=== PATIENT | female | born 1990 | race Caucasian/White ===

== ENCOUNTER 2018-06-22 12:21 | Outpatient (CLI) | payer OTHER ==
--- NOTE | 2018-06-22 15:55 | MRI ---
RIGHT SHOULDER MRI WITHOUT IV CONTRAST: HISTORY: Right rotator cuff tendinitis, right shoulder pain since December. FINDINGS: Minimal downsloping of the anterior acromion. Mild fat stranding in the subacromial bursa. No evide nce for rotator cuff tear. Subscapularis and biceps tendons are intact. Rotator cuff muscles are wi thin normal limits of signal and volume. No significant abnormal marrow signal or acute osteochondra l defect. IMPRESSION: Mild downsloping of the anterior acromion. No evidence for significant acute internal derangement. POS: TPC
--- NOTE | 2018-06-22 16:09 | MRI ---
MRI LEFT WRIST WITHOUT IV CONTRAST: HISTORY: Complex tear of triangular fibrocartilage complex. Left wrist pain for weeks. FINDINGS: There is some minimal fluid in the extensor pollicis brevis tendon sheath, as well as the extensor ca rpi radialis brevis tendon sheath. Minimal increased signal in the region of the extensor carpi ulna ris tendon, with minimal thickening and increased signal at the level of the distal ulna, with some v shabana mild tendon sheath fluid. There is a questionable tiny, linear area of increased signal in the t riangular fibrocartilage complex, possibly a very tiny hairline tear, with very minute fluid in the d istal radial ulnar joint. The scapholunate ligament region appears unremarkable. No evidence for ab normal marrow signal. IMPRESSION: 1. Possible tiny, slit-like tear in the triangular fibrocartilage complex, with minute fluid in the distal radial ulnar joint, evidence for some tenosynovitis, involving the extensor pollicis brevis te ndon sheath, as well as the extensor carpi radialis brevis tendon sheath. 2. Minimal tendinopathy and tendon sheath fluid in the extensor carpi ulnaris. 3. No evidence for other significant acute process. POS: TPC
== END 2018-06-22 12:22 | disposition home or self-care (01) ==
LOC: SCSMRI 12:21
PROVIDERS: ATTEND Orthopaedic Surgery Hand Surgery
DX: S63.592A Other specified sprain of left wrist, initial encounter (principal); M25.511 Pain in right shoulder; M75.81 Other shoulder lesions, right shoulder; M65.88 Other synovitis and tenosynovitis, other site

== ENCOUNTER 2018-11-22 09:11 | Outpatient (CLI) | payer OTHER | END 2018-11-22 09:12 | disposition home or self-care (01) | LOC: CTENTCT 09:11 | PROVIDERS: ATTEND Otolaryngology Plastic Surgery within the Head & Neck | DX: J32.9 Chronic sinusitis, unspecified (principal) | CPT/HCPCS: 70486 ==

== ENCOUNTER 2019-03-23 09:57 | Day surgery (SDC) | payer OTHER ==
[2019-03-22 11:13] VITALS: BMI 25.1
[2019-03-23] MEDS ORDERED: Ketorolac Tromethamine 30 MG/ML VIAL ONE (10:17)
[2019-03-23] MEDS ORDERED: Lidocaine 1% PF 5 ML VIAL ONE (10:17)
[2019-03-23] MEDS ORDERED: Ondansetron PF 4 MG/2 ML Vial ONE (10:17)
[2019-03-23] MEDS ORDERED: ePHEDrine/0.9% NaCl/PF SYRINGE 50 mg/10 ml ONE (10:17)
[2019-03-23] MEDS ORDERED: Rocuronium Bromide 10 MG/ML (10ML VIAL) ONE (10:17)
[2019-03-23] MEDS ORDERED: Dexamethasone 20 MG/5 ML VIAL ONE (10:17)
[2019-03-23] MEDS ORDERED: PROPOFOL 200 MG/20 ML VIAL ONE (10:17)
[2019-03-23] MEDS ORDERED: Oxymetazoline HCl 0.05% ( 15 ML ) ONE ×2 (10:21→11:15)
[2019-03-23] MEDS ORDERED: Fentanyl 250 MCG/5 ML VIAL ONE (10:26)
[2019-03-23] MEDS ORDERED: Lidocaine 1% w/Epinephrine 1:100K 20 ML VIAL ONE (11:15)
[2019-03-23] MEDS ORDERED: Bacitracin Zinc Ointment 30 gm TUBE ONE (12:00)
[2019-03-23] MEDS ORDERED: Fentanyl 100 MCG/2 ML VIAL ONE ×2 (12:33→13:11)
[2019-03-23] MEDS ORDERED: Promethazine HCl 25 MG/ML VIAL ONE (12:34)
[2019-03-23] MEDS ORDERED: Hydrocodone-Acetamin 15 ML UDCUP ONE (15:23)
--- NOTE | 2019-03-24 09:26 | OP ---
DATE OF PROCEDURE: 03/23/2019 PREOPERATIVE DIAGNOSES: 1. Chronic rhinosinusitis. 2. Nasal septal deviation. 3. Bilateral inferior turbinate hypertrophy. POSTOPERATIVE DIAGNOSES: 1. Chronic rhinosinusitis. 2. Nasal septal deviation. 3. Bilateral inferior turbinate hypertrophy. PROCEDURES PERFORMED: 1. Bilateral endoscopic sinus surgery, total ethmoidectomies. 2. Bilateral endoscopic sinus surgery, maxillary antrostomies. 3. Bilateral endoscopic sinus surgery, frontal sinusotomy. 4. Nasal septoplasty. 5. Bilateral inferior turbinate submucosal resection. ESTIMATED BLOOD LOSS: 20 mL. COMPLICATIONS: None. ANESTHESIA: GETA. DESCRIPTION OF PROCEDURE: The patient was taken to the operating room and GETA was obtained by the anesthesia staff. Afrin pledgets were then placed into the nasal cavity bilaterally. The patient was placed into the beach chair position and was prepped and draped for standard nasal surgical procedures. Following this, the Afrin pledgets were removed and 1% lidocaine with 1:100,000 epinephrine was injected via a 27 gauge needle into the nasal septum, the inferior turbinate and the middle turbinate bilaterally. Following this, a [place] incision was made on the left nasal septum and mucoperichondrial flaps were elevated. A strong 2 cm caudal and dorsal cartilage strut was left intact as the deviated portions of the nasal cartilage and bone was removed. A 4-0 gut stitch was used to reapproximate the nasal mucoperichondrial flaps as well as close the Jer incision. Following this, the submucosal microdebrider was used to puncture and submucosally resect the anterior-inferior portions of the hypertrophic inferior turbinates. The inferior turbinates were laterally outfractured with a [place] elevator. Following this, 1% lidocaine with 1:100,000 epinephrine were injected into the middle turbinates and lateral nasal wall bilaterally. Following this, the 0-degree endoscope was used to visualize the middle turbinate and the middle turbinate was medially fractured using a [place] elevator. Following this, the uncinate process was identified and was examined. The uncinate process was noted to be inflamed and laterally displaced bilaterally. Following this, a ball-ended probe was used to anteriorly fracture the uncinate process bilaterally. Following this, the 0-degree microdebrider and the up-biting [place] forceps were used to remove the uncinate process bilaterally. Following this, the natural maxillary sinus ostia was identified with the 0-degree endoscope and the ball-ended probe. The natural maxillary ostia were then widened using a 40-degree microdebrider and the straight [place] forceps bilaterally. Following this, the ethmoidal bulla was identified bilaterally. A 0-degree microdebrider was used to puncture the ethmoidal bulla on its medial and inferior aspect bilaterally. Following this, the 0-degree microdebrider and the up-biting [place] forceps were used to remove the ethmoidal bulla. Following this, the grand lamella was identified posterior to this area and was punctured using the 0-degree microdebrider bilaterally. Following this, the ethmoidal cells were opened from the posterior to the anterior using the 0-degree microdebrider, the 40-degree microdebrider and the up-biting [place] forceps bilaterally. Following this, the 45-degree endoscope and the 40-degree microdebrider blade were used to further remove the anterior ethmoidal cells to the level of the frontal sinus recess bilaterally. Following this, a 45-degree endoscope was then used to visualize frontal sinus recess and frontal sinus ostia, which was then widened using a 40-degree microdebrider blade and up-biting [place] forceps. Following this, it was also noted on the right maxillary sinus, there was a large medial wall defect from the severity of her nasal septal deviation. This large accessory ostia was not connected to the natural maxillary sinus ostia and a ball-ended probe was used to connect these tubes and the 40-degree microdebrider blade was used to widened up. The nasal cavity was irrigated. NasoPore packing was placed within the middle meatus and PROPEL nasal stents were placed within the new maxillary sinus ostia bilaterally. The patient tolerated the procedure well. Job ID: [id number]
== END 2019-03-23 16:22 | disposition home or self-care (01) ==
LOC: SDC 09:57 → EEVIPCON 09:57 → SDC 16:22
PROVIDERS: ATTEND Otolaryngology Plastic Surgery within the Head & Neck
DX: J32.9 Chronic sinusitis, unspecified (principal); J34.2 Deviated nasal septum; J34.3 Hypertrophy of nasal turbinates; M06.9 Rheumatoid arthritis, unspecified; J30.1 Allergic rhinitis due to pollen; J30.81 Allergic rhinitis due to animal (cat) (dog) hair and dander; Z79.899 Other long term (current) drug therapy; Z88.0 Allergy status to penicillin; Z91.011 Allergy to milk products; Z91.018 Allergy to other foods
CPT/HCPCS: 36415; 85014; J0131; J1100; J1885; J2001; J2405; J2550; J2704; J3010

== ENCOUNTER 2020-02-28 08:38 | Outpatient (CLI) | payer OTHER ==
--- NOTE | 2020-02-28 11:10 | MRI ---
EXAM: MRI left wrist PROVIDED CLINICAL HISTORY: Pain COMPARISON: 06/22/2018 FINDINGS: Evaluation is limited by patient motion. The dorsal extensor and volar flexor tendons demonstrate an intact MR appearance. There is slightly g reater than physiologic tenosynovial fluid involving the flexor carpi radialis and second dorsal extensor compartment tendons. The amount of fluid within the radiocarpal and midcarpal joints is physiologic. There is greater than physiologic distal radial ulnar joint fluid. Stable signal alteration at the undersurface of the radial aspects of the TFC disc. The scapholunate and lunotriquetral ligaments appear grossly intact. Alignment appears anatomic. Joint spaces appear preserved. No focal concerning regional marrow or mus cular signal abnormality is evident. The courses of the regional major neurovascular structures appear unremarkable. IMPRESSION: Stable exam.
--- NOTE | 2020-02-28 11:24 | MRI ---
EXAM: MRI left ring digit PROVIDED CLINICAL HISTORY: Deformity, pain and swelling COMPARISON: None FINDINGS: There is a fourth MCP joint effusion with evidence for erosive change involving the radial aspects of the fourth metacarpal head. There are small joint effusions involving the ring digit PIP and DIP joints. No additional erosive change is evident. Regional marrow signal appears otherwise normal. There is greater than physiologic tenosynovial fluid involving the ring digit flexor tendons. There is boutonniere deformity of the ring digit, without definite evidence for full-thickness centra l slip disruption. There is no evidence for bowstringing to suggest wade injury. The flexor tendons appear intact. The fourth MCP joint capsule and collateral ligaments appear intact. IMPRESSION: Fourth MCP joint effusion with associated erosive change, as well as fourth PIP and DIP joint effusio ns and flexor tenosynovitis. Findings are suggestive of inflammatory arthritis.
== END 2020-02-28 08:39 | disposition home or self-care (01) ==
LOC: SCSMRI 08:38
PROVIDERS: ATTEND Orthopaedic Surgery Hand Surgery
DX: M20.022 Boutonniere deformity of left finger(s) (principal); M77.8 Other enthesopathies, not elsewhere classified; M25.442 Effusion, left hand

== ENCOUNTER 2021-08-28 09:50 | Outpatient (CLI) | payer BC | END 2021-08-28 09:51 | disposition home or self-care (01) | LOC: BICMAMMO 09:50 | PROVIDERS: ATTEND Nurse Practitioner Family | DX: N63.32 Unspecified lump in axillary tail of the left breast (principal) | CPT/HCPCS: 77066; G0279 ==